=== PATIENT | male | born 1990 | race Caucasian/White ===

== ENCOUNTER 2022-06-28 23:28 | Emergency (ER) | payer OTHER, SELFPAY ==
[2022-06-28 23:36] VITALS: PULSE 79; RESP 23
[2022-06-28 23:38] VITALS: BP 149/70; PULSE 79; RESP 20; O2SAT 97
[2022-06-28 23:40] VITALS: BP 149/70; PULSE 79; RESP 20; TEMP 37.1; O2SAT 97; BMI 39.2
--- NOTE | 2022-06-28 23:42 | DI.RAD.S_ITS ---
PROCEDURE: XR CHEST 1V INDICATIONS: Chest pain TECHNIQUE: One view of the chest was acquired. COMPARISON: None. FINDINGS: Surgical changes and devices: Post median sternotomy. Lungs and pleura: Lungs are clear. No pleural effusions or pneumothorax. Mediastinum: Mediastinal contours appear normal. Heart size is normal. Bones and chest wall: No suspicious bony lesions. Overlying soft tissues appear unremarkable. IMPRESSION: No acute cardiopulmonary abnormality. Dictated by: Homar Engel M.D. on 06/29/2022 at 1:07 Approved by: Homar Engel M.D. on 06/29/2022 at 1:08
[2022-06-29] VITALS: PULSE 81; O2SAT 97
--- NOTE | 2022-06-29 00:05 | ED_ITS ---
HPI - Chest Pain General Chief Complaint: Chest Pain Stated Complaint: abd pain Time Seen by Provider: 06/28/22 23:41 Source: patient Mode of arrival: Ambulatory Limitations: no limitations History of Present Illness HPI narrative: Patient is a 32-year-old male. Does have a connective tissue disease syndrome. He is blind in his right eye. [place]. 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 He states that initially he started to have tingling in his left index finger and then progress to his left thumb and then of the fingers of the rest of his hand and then started some move up his arm. He now has numbness and tingling in his left upper extremity. He also states that his left upper back hurts and it feels like someone is stabbing him from his left upper back into the left side of his chest. Initially the stated complaint was abdominal pain however the patient did not say that he had abdominal pain. Although when his abdomen was pressed during the exam it did cause him some discomfort. He is not had any vomiting. No change in urinary symptoms. No specific trauma. Has not tried anything for the symptoms prior to arrival. Related Data Previous Rx's Medication Instructions Recorded cyclobenzaprine 10 mg tablet 10 mg PO TID PRN muscle spasm #7 06/29/22 tabs Allergies Allergy/AdvReac Type Severity Reaction Status Date / Time promethazine [From Phenergan] AdvReac Intermediate Vomiting Verified 06/28/22 23:44 Review of Systems Constitutional Constitutional: Reports system reviewed and no additional complaints, except as documented Gastrointestinal Gastrointestinal: Reports system reviewed and no additional complaints, except as documented Musculoskeletal Musculoskeletal: Reports system reviewed and no additional complaints, except as documented Integumentary/Breasts Skin/Breast: Reports system reviewed and no additional complaints, except as documented Neurologic Neurologic: Reports system reviewed and no additional complaints, except as documented Hematologic/Lymphatic On Anticoagulants: No Patient History Social History Smoking Status: Never smoker Smoking Status: Never smoker tobacco type: smokeless tobacco alcohol intake frequency: holidays/special occasions only Substance Use Type: does not use Exam Initial Vital Signs Initial Vital Signs: Vital Signs Pulse Rate 79 06/28/22 23:36 Respiratory Rate 23 06/28/22 23:36 [facility] Head: normal to inspection and normocephalic Face and sinus: normal facial exam Chest Chest: tenderness (Left upper chest) Resp Effort & Inspection: normal respiratory effort Auscultation: clear to auscultation bilaterally Cardio Rate: regular rate Rhythm: regular rhythm GI Inspection: non-distended Back/Spine/Pelvis Thoracic/Lumbar Spine: paraspinal tenderness (Left thoracic paraspinal) Skin General: no rashes or lesions noted Neuro Speech: speech normal Other: Subjective decreased sensation circumferentially of the left hand left forearm and left upper arm. Extrem Other: No gross deformities Course Orders Ordered: ED Orders 06/28/22 23:42 XR chest 1V Stat EKG-12 Lead Stat 06/28/22 23:54 Complete Blood Count AUTO DIFF Stat Comprehensive Metabolic Panel Stat Lipase Stat Troponin & CK Cardiac Panel Stat 06/29/22 00:05 CT angio head and neck Stat CT head/brain wo con Stat Discontinued Medications Cyclobenzaprine HCl (Cyclobenzaprine 10 Mg Prepack) 1 bottle MISC SEEINSTR ONE Stop: 06/29/22 01:43 Lactated Ringer's (Lactated Ringers) 1,000 mls @ 1,000 mls/hr IV BOLUS ONE Stop: 06/29/22 01:50 Last Admin: 06/29/22 00:55 Dose: 1,000 mls/hr Documented By: NOAM Ketorolac Tromethamine (Ketorolac 30 Mg/Ml Vial) 30 mg IV NOW ONE Stop: 06/29/22 01:42 Vital Signs Vital signs: Vital Signs - 8 hr 06/28/22 23:40 06/28/22 23:36 06/28/22 23:38 Temperature 98.7 F Pulse Rate 79 79 79 Respiratory Rate 20 23 20 Blood Pressure 149/70 H Pulse Oximetry 97 97 Oxygen Delivery Method Room Air 06/28/22 23:38 06/29/22 00:00 06/29/22 00:30 Temperature Pulse Rate 81 74 Respiratory Rate 21 Blood Pressure 149/70 H Pulse Oximetry 97 97 Oxygen Delivery Method MDM - Chest Pain Lab Data Attestation: I reviewed the patient's lab results. 06/28/22 23:54 06/28/22 23:54 Labs: Lab Results 06/28/22 06/28/22 Range/Units 23:54 23:54 WBC 8.6 (4.5-11.0) X10^3/uL RBC 5.15 (4.5-5.9) X10^6/uL Hgb 14.4 (13.5-17.5) g/dL Hct 42.0 (41-53) % MCV 81.5 (80-100) fL MCH 27.9 (26-34) PG MCHC 34.2 (30-36) % RDW 13.8 (11.6-14.8) % Plt Count 263 (150-400) X10^3/uL Neut % (Auto) 61.2 (50-75) % Lymph % (Auto) 32.1 (25-40) % [place] % (Auto) 3.0 (3-14) % Eos % (Auto) 2.8 (2-4) % Baso % (Auto) 0.9 (0-2) % Neut # (Auto) 5300 (7632-0787) /uL Lymph # (Auto) 2800 (1681-8678) /uL [place] # (Auto) 300 (0-900) /uL Eos # (Auto) 200 (0-450) /uL Baso # (Auto) 100 (0-100) /uL Sodium 134 L (137-145) mmol/L Potassium 4.4 (3.4-5.1) mmol/L Chloride 99 (98-107) mmol/L Carbon Dioxide 27 (22-32) mmol/L BUN 24 H (9-20) mg/dL Creatinine 1.01 (0.66-1.25) mg/dL Estimated GFR > 60 (>60) mL/min BUN/Creatinine Ratio 23.8 H (6-22) Glucose 133 H (70-100) mg/dL Calcium 9.1 (8.4-10.2) mg/dL Total Bilirubin 0.4 (0.2-1.3) mg/dL AST 34 (17-59) IU/L ALT 32 (<50) IU/L Alkaline Phosphatase 61 (38-126) U/L Total Creatine Kinase 495 H (55-170) U/L CK-MB (CK-2) 2.29 (<2.37) ng/mL CK-MB (CK-2) Rel Index 0.5 L (1.5-5.0) % Troponin I < 0.012 (0.01-0.034) ng/mL Total Protein 8.0 (6.3-8.2) g/dL Albumin 4.5 (3.5-5.0) g/dL Globulin 3.5 (1.7-4.1) g/dL Albumin/Globulin Ratio 1.3 (1.0-2.8) Lipase 119 (23-300) U/L Imaging Data Chest x-ray: Radiologist's Impression: PROCEDURE:? XR CHEST 1V ? INDICATIONS:? Chest pain ? TECHNIQUE:? One view of the chest was acquired.? ? COMPARISON:? None. ? FINDINGS:? ? Surgical changes and devices:? Post median sternotomy. ? Lungs and pleura:? Lungs are clear.? No pleural effusions or pneumothorax.? ? Mediastinum:? Mediastinal contours appear normal.? Heart size is normal.? ? Bones and chest wall:? No suspicious bony lesions.? Overlying soft tissues appear unremarkable.? ? IMPRESSION:? No acute cardiopulmonary abnormality. CT scan - head: Radiologist's Impression: PROCEDURE:? CT HEAD/BRAIN WO CON ? INDICATIONS:? L arm tingling ? TECHNIQUE:? Noncontrast 4.5 mm thick angled axial sections acquired from the foramen magnum to the vertex, with coronal and sagittal reformats.? For radiation dose reduction, the following was used:? automated exposure control, adjustment of mA and/or kV according to patient size.? ? COMPARISON:? None. ? FINDINGS:? Image quality:? Excellent.? ? CSF spaces:? Basal cisterns are patent.? No extra-axial fluid collections.? Ventricles are normal in size and shape.? ? Brain:? No midline shift.? No intracranial masses or hemorrhage.? Nice-white matter interface is normal.? ? Skull and face:? Calvarium and visualized facial bones are intact, without suspicious lesions.? Density within the right orbit. ? Sinuses:? Visualized sinuses and mastoids are clear.? ? IMPRESSION:? No acute intracranial abnormality. ? Density within the right orbit.? Recommend clinical correlation.? CTA - brain/neck: Radiologist's Impression: PROCEDURE:? CT ANGIO HEAD AND NECK ? INDICATIONS:? L arm tingling ? TECHNIQUE:? After the administration of intravenous contrast, 1 mm thick sections acquired from the aortic arch through the [place] of [place].? Post-contrast 4.5 mm thick sections then re-acquired from the foramen magnum to the vertex.? 3-dimensional cxxyjed-rwsorsens-xdzzyfqgny (MIP) and/or volume rendering reformats were acquired of the central intracranial vasculature and neck separately. For radiation dose reduction, the following was used:? automated exposure control, adjustment of mA and/or kV according to patient size.? ? COMPARISON:? [facility], CT, CT HEAD/BRAIN WO CON, 06/29/2022, 0:35. ? FINDINGS:? Image quality:? Excellent.? ? BRAIN:? CSF spaces:? Ventricles are normal in size and shape.? Basal cisterns are pat ent.? No extra-axial fluid collections.? ? Brain:? No midline shift.? No intracranial bleeds or masses.? Nice-white matter interface appears intact.? ? Skull and face:? Calvarium and facial bones appear intact, without suspicious lesions.? Right intraorbital density or mass with rim calcification.? Stranding at the subcutaneous fat of the left upper neck (2/185).? ? Sinuses:? Bilateral mucosal thickening at the inferior maxillary sinuses.? ? HEAD CT ANGIOGRAPHY:? Anterior circulation:? Intracranial internal carotid arteries are normal in size and flow.? The flow within the paired anterior cerebral arteries is normal and symmetric.? The flow within the middle cerebral arteries is normal and symmetric.? The anterior communicating artery is seen.? No aneurysms are seen.? ? Posterior circulation:? Visualized portions of the vertebral arteries demonstrate normal caliber, and join to form a normal appearing basilar artery.? Flow within the posterior cerebral arteries is normal and symmetric.? No aneurysms are seen.? ? NECK CT ANGIOGRAPHY:? Carotid system:? The great vessels demonstrate a conventional anatomy as they arise from the aortic arch.? The origins of the common carotid arteries appear patent.? The common carotid arteries demonstrate normal caliber and courses.? The bifurcation regions are both widely patent.? The internal carotid arteries demonstrate normal calibers and courses.? ? Posterior circulation:? The origins of the vertebral arteries both appear widely patent.? The more superior extracranial portions of both vertebral arteries also demonstrate normal courses and calibers.? They join to form a normal appearing basilar artery.? ? Soft tissues:? Visualized neck soft tissues demonstrate no suspicious abnormalities.? ? Bones:? No suspicious bony lesions.? Post median sternotomy.? Visualized cervical spine appears normally aligned.? ? ? IMPRESSION:? 1. No acute intracranial hemorrhage. ? 2. No large vessel occlusion. ? 3. No critical stenosis. ? 4. Stranding at the subcutaneous fat at the left upper neck.? This could represent contusion.? Recommend clinical correlation. ? 5. Right intra orbital density or mass. ? 6. Maxillary sinusitis. ? ? Any quantitative measurements of stenosis were performed using NASCET criteria.? ECG Data Attestation: I personally reviewed and interpreted this ECG as follows: Interpretation: Sinus rhythm Ventricular rate is 77 Normal axis QRS [address] T wave changes MDM Narrative Medical decision making narrative: Patient has subjective tingling to his left upper extremity that does not specifically follow a specific nerve distribution. He is tenderness of his left upper shoulder and left chest. His head CT and CTA unremarkable. Low suspicion for ACS as the cause of his symptoms. I do suspect muscular symptoms that is causing the numbness and tingling in his left arm. His strength is unremarkable. No other focal neurologic deficits. Low suspicion for CVA/TIA. I recommended we use muscle relaxers. He was given Toradol here in the emergency department. Was sent home with a prescription for Flexeril. Patient was given return precautions. Expressed understanding and agreement. Discharge Plan Departure Patient Disposition: Home Clinical Impression: Back pain, thoracic, Arm paresthesia, left Instructions: DI for Numbness/Tingling, DI for Thoracic Back Pain Activity Restrictions/Additional Instructions: Your workup here in the emergency department is very reassuring. I suspect that the symptoms you are having are related to the muscle issues that you are having in your neck and left shoulder/upper back. I do recommend conservative measures such as heat and ice and massage and light stretching. Also anti- inflammatories. The medications that you received this evening to take home with you and the prescription are muscle relaxers and if your taking his medicines you should not be working however these are as needed medicines. Prescriptions: New cyclobenzaprine 10 mg tablet 10 mg PO TID PRN (Reason: muscle spasm) Qty: 7 0RF Stand Alone Forms: Patient Portal/API
--- NOTE | 2022-06-29 00:05 | DI.CT.S_ITS ---
PROCEDURE: CT HEAD/BRAIN WO CON INDICATIONS: L arm tingling TECHNIQUE: Noncontrast 4.5 mm thick angled axial sections acquired from the foramen magnum to the vertex, with coronal and sagittal reformats. For radiation dose reduction, the following was used: automated exposure control, adjustment of mA and/or kV according to patient size. COMPARISON: None. FINDINGS: Image quality: Excellent. CSF spaces: Basal cisterns are patent. No extra-axial fluid collections. Ventricles are normal in size and shape. Brain: No midline shift. No intracranial masses or hemorrhage. Nice-white matter interface is normal. Skull and face: Calvarium and visualized facial bones are intact, without suspicious lesions. Density within the right orbit. Sinuses: Visualized sinuses and mastoids are clear. IMPRESSION: No acute intracranial abnormality. Density within the right orbit. Recommend clinical correlation. Dictated by: Homar Engel M.D. on 06/29/2022 at 1:05 Approved by: Homar Engel M.D. on 06/29/2022 at 1:07
--- NOTE | 2022-06-29 00:05 | DI.CT.S_ITS ---
PROCEDURE: CT ANGIO HEAD AND NECK INDICATIONS: L arm tingling TECHNIQUE: After the administration of intravenous contrast, 1 mm thick sections acquired from the aortic arch through the [place]. Post-contrast 4.5 mm thick sections then re-acquired from the foramen magnum to the vertex. 3-dimensional oyknlug-cmahucoac-uoobtyiztv (MIP) and/or volume rendering reformats were acquired of the central intracranial vasculature and neck separately. For radiation dose reduction, the following was used: automated exposure control, adjustment of mA and/or kV according to patient size. COMPARISON: [facility], CT, CT HEAD/BRAIN WO CON, 06/29/2022, 0:35. FINDINGS: Image quality: Excellent. BRAIN: CSF spaces: Ventricles are normal in size and shape. Basal cisterns are patent. No extra-axial fluid collections. Brain: No midline shift. No intracranial bleeds or masses. Nice-white matter interface appears intact. Skull and face: Calvarium and facial bones appear intact, without suspicious lesions. Right intraorbital density or mass with rim calcification. Stranding at the subcutaneous fat of the left upper neck (2/185). Sinuses: Bilateral mucosal thickening at the inferior maxillary sinuses. HEAD CT ANGIOGRAPHY: Anterior circulation: Intracranial internal carotid arteries are normal in size and flow. The flow within the paired anterior cerebral arteries is normal and symmetric. The flow within the middle cerebral arteries is normal and symmetric. The anterior communicating artery is seen. No aneurysms are seen. Posterior circulation: Visualized portions of the vertebral arteries demonstrate normal caliber, and join to form a normal appearing basilar artery. Flow within the posterior cerebral arteries is normal and symmetric. No aneurysms are seen. NECK CT ANGIOGRAPHY: Carotid system: The great vessels demonstrate a conventional anatomy as they arise from the aortic arch. The origins of the common carotid arteries appear patent. The common carotid arteries demonstrate normal caliber and courses. The bifurcation regions are both widely patent. The internal carotid arteries demonstrate normal calibers and courses. Posterior circulation: The origins of the vertebral arteries both appear widely patent. The more superior extracranial portions of both vertebral arteries also demonstrate normal courses and calibers. They join to form a normal appearing basilar artery. Soft tissues: Visualized neck soft tissues demonstrate no suspicious abnormalities. Bones: No suspicious bony lesions. Post median sternotomy. Visualized cervical spine appears normally aligned. IMPRESSION: 1. No acute intracranial hemorrhage. 2. No large vessel occlusion. 3. No critical stenosis. 4. Stranding at the subcutaneous fat at the left upper neck. This could represent contusion. Recommend clinical correlation. 5. Right intra orbital density or mass. 6. Maxillary sinusitis. Any quantitative measurements of stenosis were performed using NASCET criteria. Dictated by: Homar Engel M.D. on 06/29/2022 at 1:09 Approved by: Homar Engel M.D. on 06/29/2022 at 1:19
[2022-06-29 00:06] LABS: Add Manual Diff / Slide Review NO; Basophils Absolute Auto 100 /uL (0-100); Basophils Percent Auto 0.9 % (0-2); Eosinophils Absolute Auto 200 /uL (0-450); Eosinophils Percent Auto 2.8 % (2-4); Hemoglobin 14.4 g/dL (13.5-17.5); Lymphocytes Absolute Auto 2800 /uL (1100-4500); Lymphocytes Percent Auto 32.1 % (25-40); Mean Corpuscular HGB Conc 34.2 % (30-36); Mean Corpuscular Hemoglobin 27.9 PG (26-34); Mean Corpuscular Volume 81.5 fL (80-100); Monocytes Absolute Auto 300 /uL (0-900); Neutrophils Absolute Auto 5300 /uL (1500-7000); Neutrophils Percent Auto 61.2 % (50-75); Platelet Count 263 X10^3/uL (150-400); Red Blood Cell Count 5.15 X10^6/uL (4.5-5.9); Red Cell Distribution Width 13.8 % (11.6-14.8); White Blood Cell Count 8.6 X10^3/uL (4.5-11.0)
[2022-06-29 00:12] LABS: Alanine Aminotransferase 32 IU/L (<50); Albumin 4.5 g/dL (3.5-5.0); Albumin Globulin Ratio 1.3 (1.0-2.8); Alkaline Phosphatase 61 U/L (38-126); Aspartate Aminotransferase 34 IU/L (17-59); BUN Creatinine Ratio 23.8 (6-22); Bilirubin Total 0.4 mg/dL (0.2-1.3); Blood Urea Nitrogen 24 mg/dL (9-20); Calcium 9.1 mg/dL (8.4-10.2); Carbon Dioxide 27 mmol/L (22-32); Chloride 99 mmol/L (98-107); Creatine Kinase 495 U/L (55-170); Estimated Glomerular Filt Rate > 60 mL/min (>60); Globulin 3.5 g/dL (1.7-4.1); Glucose 133 mg/dL (70-100); HEMOLYSIS 18 (0-50); Lipase 119 U/L (23-300); Potassium 4.4 mmol/L (3.4-5.1); Sodium 134 mmol/L (137-145)
[2022-06-29 00:23] LABS: Troponin I < 0.012 ng/mL (0.01-0.034)
[2022-06-29 00:27] LABS: CKMB % Relative Index 0.5 % (1.5-5.0); Creatine Kinase MB 2.29 ng/mL (<2.37)
[2022-06-29 00:30] VITALS: PULSE 74; RESP 21; O2SAT 97
[2022-06-29] MEDS: LACTATED RINGERS 1,000 ML 1000 ML IV (00:55)
[2022-06-29] MEDS: CYCLOBENZAPRINE 10 MG PREPACK 1 BOTTLE MISC (02:13)
[2022-06-29] MEDS: KETOROLAC 30 MG/ML VIAL IV (02:14)
[2022-06-29 02:20] VITALS: BP 142/72; PULSE 74; RESP 18; TEMP 37.1; O2SAT 98
== END 2022-06-29 02:21 | disposition home or self-care (01) ==
PROVIDERS: Emergency Provider Emergency Medicine
DX: M54.6 Pain in thoracic spine (principal); R20.2 Paresthesia of skin; R07.9 Chest pain, unspecified; M25.512 Pain in left shoulder
CPT/HCPCS: 36415; 70450; 70496; 70498; 71045; 80053; 82550; 82553; 83690; 84484; 85025; 93005; 96361; 96374; 99284; J1885; Q9967